=== PATIENT | female | born 1965 | race Hispanic/Latino ===

== ENCOUNTER 2018-07-14 08:59 | Emergency (ER) | payer SELFPAY ==
[~2018-07-14] VITALS: Ht 157.5 cm; Wt 76.2 kg
[2018-07-14 10:43] LABS: BASOPHILS % 0.4 % (0.0-1.0); EOSINOPHILS # (AUTO) 0.1 (0.0-0.4); EOSINOPHILS % 1.3 % (0.0-6.0); HEMATOCRIT 39.1 % (34.2-44.1); HEMOGLOBIN 12.9 g/dL (12.0-16.0); INR 0.87; LYMPHOCYTES # (AUTO) 1.1 (1.0-3.2); LYMPHOCYTES % 24.6 % (18.0-39.1); MEAN CORPUSCULAR HEMOGLOBIN 30.3 pg (28-32); MEAN CORPUSCULAR VOLUME 91.8 fL (81-99); MONOCYTES # (AUTO) 0.2 (0.2-0.8); NEUTROPHILS # (AUTO) 3.2 (2.1-6.9); NEUTROPHILS % 68.5 % (38.7-80.0); PLATELET COUNT 157 x10e3/uL (140-360); PROTHROMBIN TIME 12.7 seconds (11.9-14.5); RED BLOOD COUNT 4.26 x10e6/uL (3.6-5.1); RED CELL DISTRIBUTION WIDTH 15.7 % (11.7-14.4)
[2018-07-14 10:44] LABS: PARTIAL THROMBOPLASTIN TIME 20.2 seconds (23.8-35.5)
[2018-07-14 10:52] LABS: ANION GAP 15.5 mmol/L (8-16); BLOOD UREA NITROGEN 15 mg/dL (7-26); BUN/CREATININE RATIO 21 (6-25); CALCIUM 8.5 mg/dL (8.4-10.2); CARBON DIOXIDE 19 mmol/L (22-29); CHLORIDE 104 mmol/L (98-107); CREATININE, SERUM 0.73 mg/dL (0.57-1.11); EST GLOMERULAR FILTRATION RATE > 60 ML/MIN (60-); GLUCOSE 248 mg/dL (74-118); POTASSIUM 3.5 mmol/L (3.5-5.1); SODIUM 135 mmol/L (136-145)
[2018-07-14] MEDS ORDERED: MEDROXYPROGESTERONE ACETATE 2.5 MG TAB PO ONE (11:30)
[2018-07-14 11:59] VITALS: BP 124/72
== END 2018-07-14 12:22 | disposition home or self-care (01) ==
LOC: ER 08:59
DX: N92.0 Excessive and frequent menstruation with regular cycle (principal); E11.65 Type 2 diabetes mellitus with hyperglycemia
CPT/HCPCS: 36415; 80048; 85025; 85610; 85730; 86850; 86900; 99283